=== PATIENT | male | born 1965 | race Caucasian/White ===

== ENCOUNTER 2018-10-02 06:16 | Day surgery (SDC) | payer OTHER | END 2018-10-02 12:55 | disposition home or self-care (01) | LOC: GIL 06:16 | DX: D12.5 Benign neoplasm of sigmoid colon (principal); K64.8 Other hemorrhoids; D12.4 Benign neoplasm of descending colon; K57.30 Diverticulosis of large intestine without perforation or abscess without bleeding; K64.4 Residual hemorrhoidal skin tags; Z79.82 Long term (current) use of aspirin | CPT/HCPCS: 45380; 88305 ==